=== PATIENT | female | born 1995 | race Caucasian/White ===

== ENCOUNTER 2019-06-27 16:41 | Inpatient (IN) | payer BC, OTHER ==
[~2019-06-27] VITALS: Ht 157.5 cm; Wt 110.5 kg
[2019-06-27 17:05] VITALS: BP 137/65
[2019-06-27] MEDS ORDERED: AZITHROMYCIN INJ 500MG VIAL (J0456) As Ordered ONE (17:42)
--- NOTE | 2019-06-27 17:51 | HPE ---
DATE OF ADMISSION: 06/27/2019 Kandy is a 24-year-old female, 2, para 1-0-0-2, who is approximately 37 and 5 weeks gestation with a history of gestational diabetic A2. She is a transfer from [facility] after being evaluated for decreased movement. She was found to have a nonreactive heart rate tracing with a biophysical profile of 8/8; however, the fluid was low. She was monitored for an extensive period of time and continued to have periods of nonreactive tracing with decreasing fluid with no evidence of any rupture of membrane. At this point she was transferred here, as the patient has a prior history section, morbid obesity, and for lack of intensive care unit. Upon evaluation here in labor and delivery, the chart was reviewed, including the strip sent as well as the ultrasound. A decision was made to proceed with the section, as the patient was scheduled for a section. Her record reviewed. Complicated by gestational diet diabetes. She did have gestational hypertension with her last ; however, this her pressures have been normal up until the last couple of visits, but she had a couple of borderline elevated blood pressures. LABORATORY: Blood type is B positive, rubella immune. Hepatitis negative, HIV negative, GC/chlamydia negative. GBS is negative. Her last hemoglobin A1c which was done on 05/27/2019 was 5.7. PAST MEDICAL HISTORY: Significant for asthma with also history of hypertension and preeclampsia with her last . PAST SURGICAL HISTORY: 1. section times one. 2. Tonsillectomy. 3. Knee surgery. SOCIAL HISTORY: She denies any alcohol, drugs, or cigarette smoking. REVIEW OF SYSTEMS: Unremarkable. FAMILY HISTORY: Significant for diabetes, obesity. MEDICATIONS: vitamins, insulin. ALLERGIES: No known drug allergies. PHYSICAL EXAMINATION: Obese female in no acute distress. ABDOMEN: Gravid, obese, soft, nontender, nondistended. EXTREMITIES: No clubbing, cyanosis. Lower extremity edema 1+. Vaginal exam deferred. Tracing reviewed. Contractions very irregular. ASSESSMENT: 1. Intrauterine at 37 and 5 weeks gestation. 2. Gestational diabetes. 3. Nonreassuring heart rate tracing. 4. History of prior section. 5. Borderline oligohydramnios. PLAN: The patient will be admitted. She is counseled extensively. Given her recurrent history of decreased movement and the decreased variability noted on prolonged monitoring, a decision was made to proceed with the repeat section. The patient counseled extensively on possible need of intensive care unit (NICU) admission for the baby, especially in light of her diabetes. Risk and benefits discussed. Decision was made to proceed with the section.
[2019-06-27] MEDS ORDERED: INSULADS INJ (17:52)
[2019-06-27] MEDS ORDERED: INSUH10VL SC (17:52)
[2019-06-27] MEDS ORDERED: MACR100C43 PO (17:52)
[2019-06-27] MEDS ORDERED: AZITHROMYCIN INJ 500 MG, VIAL MATE ADAPTER 1 EACH in D5W 250 ML IV ONE (18:00)
[2019-06-27] MEDS ORDERED: BICITRA 30ML SOLN UDC As Ordered ONE (18:05)
[2019-06-27] MEDS ORDERED: ceFAZolin 2 GM/D5W 50 ML IV BAG (J0690 PER 500MG) As Ordered ONE (18:05)
[2019-06-27] MEDS ORDERED: OXYTOCIN INJ 10 UNITS/ML VIAL (J2590) As Ordered ONE (18:08)
[2019-06-27] MEDS ORDERED: MORPHINE PRES-FREE INJ 10 MG/10 ML VIAL (J2274) As Ordered ONE (18:10)
[2019-06-27] MEDS ORDERED: ceFAZolin SOD 2 GM in IV 1 EA IV ONE (18:15)
[2019-06-27] MEDS ORDERED: BICITRA 30ML SOLN UDC PO ONE (18:15)
[2019-06-27 18:21] LABS: HEMATOCRIT 38.6 % (36.0-47.0); HEMOGLOBIN 11.6 g/dl (12.0-15.5); MEAN CORPUSCULAR HEMOGLOBIN 25.6 pg (27.0-33.0); MEAN CORPUSCULAR HGB CONC 30.1 g/dl (32.0-36.5); MEAN CORPUSCULAR VOLUME 85.2 fl (80.0-96.0); PLATELET COUNT, AUTOMATED 294 10^3/uL (150-450); RED BLOOD COUNT 4.53 10^6/uL (4.00-5.40); WHITE BLOOD COUNT 10.3 10^3/uL (4.0-10.0)
[2019-06-27] MEDS ORDERED: diphenhydrAMINE INJ 50MG/ML VIAL (J1200) IV PRN (18:38)
[2019-06-27] MEDS ORDERED: NALBUPHINE HCL 10 MG/ML AMP (J2300) IV PRN (18:38)
[2019-06-27] MEDS ORDERED: NALOXONE INJ 0.4 MG/1 ML VIAL (J2310) IV PRN ×2 (18:38)
[2019-06-27] MEDS ORDERED: METOCLOPRAMIDE INJ 10MG/2ML VIAL (J2765) IV PRN (18:38)
[2019-06-27] MEDS ORDERED: ONDANSETRON 4MG/2ML VIAL (J2405) IV PRN (18:38)
[2019-06-27] MEDS ORDERED: dexameTHASONE 4 MG/ML 1ML VIAL (J1100) As Ordered ONE (18:53)
[2019-06-27] MEDS ORDERED: GLYCOPYRROLATE INJ 0.2 MG/ML 2 ML VIAL As Ordered ONE (18:54)
[2019-06-27] MEDS ORDERED: ePHEDrine SULFATE 25 MG/5 ML(5MG/ML) SYRINGE As Ordered ONE (18:54)
[2019-06-27] MEDS ORDERED: PHENYLephrine HCL 500 MCG/5 ML (100MCG/ML) SYRINGE (J2370) As Ordered ONE (18:54)
[2019-06-27] MEDS ORDERED: ONDANSETRON 4MG/2ML VIAL (J2405) As Ordered ONE (18:54)
[2019-06-27 19:05] LABS: CORD GAS ABE V -4.3; CORD GAS HCO3 V 21.9 MEQ/L; CORD GAS O2 SAT V 65.8 %; CORD GAS PCO2 V 44.4 mmHg; CORD GAS PH V 7.311 UNITS; CORD GAS PO2 V 28.7 mmHg; CORD GAS SBC V 20.2 MEQ/L; CORD GAS TCO2 V 23.3 MEQ/L
[2019-06-27 19:07] LABS: CORD GAS ABE A -2.3; CORD GAS O2 SAT A 28.9 %; CORD GAS PCO2 A 66.8 mmHg; CORD GAS PH A 7.224 UNITS
[2019-06-27] MEDS ORDERED: KETOROLAC 60 MG/2 ML VIAL (J1885) As Ordered ONE (19:09)
[2019-06-27] MEDS ORDERED: PERCOCET 5MG/325MG TAB PO PRN (19:30)
[2019-06-27] MEDS ORDERED: MOM 30ML SUSPENSION UDC PO PRN (19:30)
[2019-06-27] MEDS ORDERED: MEASLES,MUMPS,RUBELLA VACCINE INJ (MMR-II) (90707) SC SCH (19:30)
[2019-06-27] MEDS ORDERED: RHOGAM 300 MCG (1500 IU) INJ (J2790) IM SCH (19:30)
[2019-06-27] MEDS ORDERED: OXYTOCIN DRIP 30 UNITS in IV 1 EA IV SCH (19:45)
[2019-06-27 21:30] VITALS: BP 139/83
[2019-06-27] MEDS: DOCUSATE SODIUM 100 MG CAP PO SCH (21:33)
[2019-06-27 22:00] VITALS: BP 132/83
[2019-06-27 22:30] VITALS: BP 132/82
[2019-06-27 23:30] VITALS: BP 128/68
[2019-06-28 02:00] VITALS: BP 122/62
[2019-06-28] MEDS: IBUPROFEN 800 MG TAB PO SCH ×3 (03:15→18:52)
[2019-06-28 06:00] VITALS: BP 129/64
[2019-06-28] MEDS: PERCOCET 5MG/325MG TAB PO PRN ×4 (06:47→23:43)
[2019-06-28 06:53] LABS: HEMATOCRIT 30.3 % (36.0-47.0); MEAN CORPUSCULAR HEMOGLOBIN 26.2 pg (27.0-33.0); MEAN CORPUSCULAR HGB CONC 31.4 g/dl (32.0-36.5); MEAN CORPUSCULAR VOLUME 83.5 fl (80.0-96.0); PLATELET COUNT, AUTOMATED 254 10^3/uL (150-450); RED BLOOD COUNT 3.63 10^6/uL (4.00-5.40); WHITE BLOOD COUNT 11.3 10^3/uL (4.0-10.0)
[2019-06-28 07:11] LABS: HEMOGLOBIN 9.5 g/dl (12.0-15.5)
[2019-06-28 07:19] LABS: BLOOD UREA NITROGEN 6 MG/DL (7-18); CALCIUM LEVEL 8.4 MG/DL (8.5-10.1); CARBON DIOXIDE LEVEL 24 MEQ/L (21-32); CHLORIDE LEVEL 106 MEQ/L (98-107); CREATININE FOR GFR 0.55 MG/DL (0.55-1.30); GLOMERULAR FILTRATION RATE > 60.0 (>60); GLUCOSE, FASTING 85 MG/DL (70-100); POTASSIUM SERUM 4.4 MEQ/L (3.5-5.1); SODIUM LEVEL 136 MEQ/L (136-145)
[2019-06-28] MEDS ORDERED: INFLUENZA QUADRIVALENT PF VACCINE 0.5ML SYRINGE (90686) IM ONE (09:00)
[2019-06-28] MEDS: DOCUSATE SODIUM 100 MG CAP PO SCH ×2 (09:48→22:59)
[2019-06-28] MEDS: PRENATAL VITAMINS CHEWABLE TABLET PO SCH (09:48)
[2019-06-28 10:57] VITALS: BP 142/67
[2019-06-28 14:15] VITALS: BP 119/57
[2019-06-28 17:48] VITALS: BP 115/56
[2019-06-28 22:00] VITALS: BP 120/56
[2019-06-29 02:19] VITALS: BP 86/54
[2019-06-29] MEDS: IBUPROFEN 800 MG TAB PO SCH ×2 (03:26→11:35)
[2019-06-29 06:09] VITALS: BP 139/77
[2019-06-29] MEDS: DOCUSATE SODIUM 100 MG CAP PO SCH (08:56)
[2019-06-29] MEDS: PRENATAL VITAMINS CHEWABLE TABLET PO SCH (08:56)
[2019-06-29] MEDS: PERCOCET 5MG/325MG TAB PO PRN (08:57)
--- NOTE | 2019-06-29 09:04 | RO ---
DATE OF PROCEDURE: 06/27/2019 Kandy is a 24-year-old female 2, para 1-0-0-2 who was admitted at 37-5/7 weeks gestation with a history of gestational diabetes on insulin, had a non-reassuring heart rate tracing and borderline oligohydramnios on ultrasound. After counseling a decision was made to proceed with a repeat sections. PREOPERATIVE DIAGNOSES: 1. Intrauterine at 37-5/7 weeks gestation. 2. Gestational diabetes A2. 3. Non-reassuring heart rate tracing. 4. Oligohydramnios. POSTOPERATIVE DIAGNOSES: 1. Intrauterine at 37-5/7 weeks gestation. 2. Gestational diabetes A2. 3. Non-reassuring heart rate tracing. 4. Oligohydramnios. 5. Nuchal cord time one. PROCEDURE: 1. Repeat section. 2. Revision of old scar. ANESTHESIA: Spinal. SURGEON: Dr. Solomon DAY CARE DIRECTOR: Dr. Tan COMPLICATIONS: None. ESTIMATED BLOOD LOSS: 500 mL. FINDINGS: Live female in occiput transverse position with a nuchal cord times one. scores are 9 and 9. weight 6 pounds 11 ounces. Placenta removed manually. Bilateral tubes and ovaries were within normal limits. PROCEDURE: After obtaining informed consent the patient was taken to the operating room where spinal anesthetic was found be adequate. She was then draped and prepped usual sterile fashion in supine position. At this point a elliptical incision was made over the old scar with the help of Dr. Tan the old scar was removed. The incision was carried down to the fascia. Fascia was incised in midline fashion and carried through laterally. Superior aspect of the fascia was then grasped with Lorena clamps, tented off and dissected off the rectus muscles sharply. The inferior aspect was dissected off in a similar fashion. Rectus muscles midline fashion. Perineum identified. Peritoneal cavity entered bluntly. Superior inferior dissection of the peritoneum was then done with good visualization of the bladder. At this point a Mobius skin retractor was placed and a low-transverse uterine incision was made. was delivered in atraumatic fashion. Nose and mouth bulb suctioned. Cord doubly clamped and cut and was then handed over to the waiting warmer. Cord blood and cord gas was sent. Placenta removed manually. Uterus cleared of all clot and debris and the uterine incision was then repaired in two separate layers of 0 Vicryl sutures. All superficial bleeders coagulated. Pelvis copiously irrigated with normal saline and suctioned out. Peritoneum closed using 2-0 Vicryl in a running fashion. Fascia closed in two separate segment of 0 Vicryl sutures. All superficial bleeders coagulated and the skin was re-approximated in a subcuticular fashion using 3-0 Vicryl and a Willy. Steri-Strips placed. The patient tolerated procedure well. She was then transferred to recovery room in stable condition.
[2019-06-29 10:10] VITALS: BP 120/66
[2019-06-29] MEDS ORDERED: IBUP80TA PO (11:56)
[2019-06-29] MEDS ORDERED: OXYC1TAB23 PO (11:57)
== END 2019-06-29 14:05 | disposition home or self-care (01) | DRG 540 ==
LOC: M LDI 16:41 → M OBS 21:00
PROVIDERS: ADMIT Obstetrics & Gynecology; ATTEND Obstetrics & Gynecology
PROC: 10D00Z1 Extraction of Products of Conception, Low, Open Approach (ICD-10-PCS; principal; 2019-06-27 19:08)
DX: O41.03X0 Oligohydramnios, third trimester, not applicable or unspecified (principal); Z3A.37 37 weeks gestation of pregnancy; O34.211 Maternal care for low transverse scar from previous cesarean delivery; O99.214 Obesity complicating childbirth; E66.01 Morbid (severe) obesity due to excess calories; O24.424 Gestational diabetes mellitus in childbirth, insulin controlled; Z79.4 Long term (current) use of insulin; O76 Abnormality in fetal heart rate and rhythm complicating labor and delivery; O69.81X0 Labor and delivery complicated by cord around neck, without compression, not applicable or unspecified; Z37.0 Single live birth

== ENCOUNTER 2019-07-12 12:55 | Emergency (ER) | payer BC, OTHER ==
[~2019-07-12] VITALS: Ht 157.5 cm; Wt 101.1 kg
[~2019-07-12 12:55] MED LIST: IBUP80TA PO; INSUH10VL SC; INSULADS INJ; MACR100C43 PO; OXYC1TAB23 PO
[2019-07-12] MEDS ORDERED: ALL10TAB29 (13:10)
[2019-07-12] MEDS ORDERED: TRIAMCINOLONE (13:10)
[2019-07-12 14:01] LABS: HEMATOCRIT 42.8 % (36.0-47.0); HEMOGLOBIN 12.7 g/dl (12.0-15.5); MEAN CORPUSCULAR HEMOGLOBIN 25.3 pg (27.0-33.0); MEAN CORPUSCULAR HGB CONC 29.7 g/dl (32.0-36.5); MEAN CORPUSCULAR VOLUME 85.4 fl (80.0-96.0); PLATELET COUNT, AUTOMATED 405 10^3/uL (150-450); RED BLOOD COUNT 5.01 10^6/uL (4.00-5.40); WHITE BLOOD COUNT 4.7 10^3/uL (4.0-10.0)
[2019-07-12 14:22] LABS: BLOOD UREA NITROGEN 12 MG/DL (7-18); CARBON DIOXIDE LEVEL 30 MEQ/L (21-32); CHLORIDE LEVEL 104 MEQ/L (98-107); CREATININE FOR GFR 0.79 MG/DL (0.55-1.30); GLOMERULAR FILTRATION RATE > 60.0 (>60); GLUCOSE, FASTING 78 MG/DL (70-100); POTASSIUM SERUM 3.9 MEQ/L (3.5-5.1); SODIUM LEVEL 139 MEQ/L (136-145)
[2019-07-12 16:52] VITALS: BP 121/75
[2019-07-14] MEDS ORDERED: BACT800T5 PO (16:55)
== END 2019-07-12 16:57 | disposition home or self-care (01) ==
LOC: M ED 12:55 → EEVIPCON 12:55 → M ED 16:57
DX: O90.89 Other complications of the puerperium, not elsewhere classified (principal); Z87.891 Personal history of nicotine dependence